=== PATIENT | male | born 1950 | race Caucasian/White ===

== ENCOUNTER → 2020-01-28 | Day surgery (SDC) | payer MEDICARE, OTHER ==
[2020-01-12 09:38] LABS: BASOPHILS # (AUTO) 0.1 (0.0-0.1); BASOPHILS % 1.1 % (0.0-1.0); EOSINOPHILS # (AUTO) 0.4 (0.0-0.4); EOSINOPHILS % 6.4 % (0.0-6.0); HEMATOCRIT 46.7 % (38.2-49.6); HEMOGLOBIN 15.6 g/dL (14.0-18.0); LYMPHOCYTES # (AUTO) 1.5 (1.0-3.2); LYMPHOCYTES % 26.7 % (18.0-39.1); MEAN CORPUSCULAR HEMOGLOBIN 30.4 pg (28-32); MEAN CORPUSCULAR HGB CONC 33.4 g/dL (31-35); MEAN CORPUSCULAR VOLUME 90.9 fL (81-99); MONOCYTES # (AUTO) 0.5 (0.2-0.8); MONOCYTES % 8.9 % (4.4-11.3); NEUTROPHILS # (AUTO) 3.2 (2.1-6.9); NEUTROPHILS % 56.5 % (38.7-80.0); PLATELET COUNT 208 x10e3/uL (140-360); RED BLOOD COUNT 5.14 x10e6/uL (4.3-5.7); RED CELL DISTRIBUTION WIDTH 12.4 % (11.7-14.4)
[~2020-01-28] MED LIST: ALPRAZOLAM0.25 M1 PO; ASPIRIN81 MG PO; ATORVASTATIN CA20 MG PO; ATROPINE SULFATE 1 MG/ML VIAL ONE; CO Q-10200 MG PO; DONNATAL E16.2 MG/5 PO; EPHEDRINE SULFATE INJ 50 MG/ML VIAL ONE; EZETIMIBE10 MG PO; FENTANYL CITRATE/PF 100MCG/2 ML INJ ONE; FISH OIL 1,0001 EAC2 PO; GLYCOPYRROLATE INJ 0.2 MG/ML VIAL ONE; IMDUR30 MG; LIDOCAINE HCL 2% LOCAL INJ 5 ML SDV VIAL INJ ONE; LIVALO4 MG PO; MIDAZOLAM HCL 2 MG/2 ML VIAL ONE; PLAVIX75 MG PO; PROPOFOL IV EMULSION 10 MG/ML 20 ML VIAL ONE; PROTONIX20 MG PO; RAMIPRIL5 MG PO
[2020-01-28 12:26] VITALS: BP 141/84
--- NOTE | 2020-01-28 14:45 | Operative Report ---
DATE OF PROCEDURE: 01/28/2020 SURGEON: iGanluca Bustos MD PROCEDURE PERFORMED: Colonoscopy. PREOPERATIVE DIAGNOSIS: History of colon polyps. POSTOPERATIVE DIAGNOSES: 1. History of colon polyps, none found. 2. Diverticulosis. PREOPERATIVE MEDICATIONS: Consisted of general anesthesia DESCRIPTION OF PROCEDURE: Using an [employer] video colonoscope, it was inserted in the patient's rectum and advanced without difficulty to the level of the cecum. The colon was studied from that level back down to the rectum. No colon polyps were found. Diverticula were present in the sigmoid and descending colon only. The colonoscope was withdrawn from the patient's rectum and the procedure was ended. In conclusion, we have no colon polyps found. Diverticulosis present. Gianluca Bustos MD SAF/MODL /[id number]
== END | disposition home or self-care (01) ==
LOC: OR 07:52
PROVIDERS: ATTEND Internal Medicine Gastroenterology
DX: Z09 Encounter for follow-up examination after completed treatment for conditions other than malignant neoplasm (principal); Z86.010 Personal history of colon polyps; K57.30 Diverticulosis of large intestine without perforation or abscess without bleeding; K21.9 Gastro-esophageal reflux disease without esophagitis; I25.10 Atherosclerotic heart disease of native coronary artery without angina pectoris; I10 Essential (primary) hypertension; N40.0 Benign prostatic hyperplasia without lower urinary tract symptoms; R00.1 Bradycardia, unspecified; E78.5 Hyperlipidemia, unspecified; F41.9 Anxiety disorder, unspecified; Z88.1 Allergy status to other antibiotic agents; Z88.8 Allergy status to other drugs, medicaments and biological substances; Z88.2 Allergy status to sulfonamides; Z01.810 Encounter for preprocedural cardiovascular examination; Z01.812 Encounter for preprocedural laboratory examination; Z11.59 Encounter for screening for other viral diseases; Z79.82 Long term (current) use of aspirin; Z68.30 Body mass index [BMI] 30.0-30.9, adult
CPT/HCPCS: 36415; 45378; 85025; 93005; J0461; J2001; J2250; J2704; J3010; U0002 ×2